=== PATIENT | female | born 1965 | race Caucasian/White ===

== ENCOUNTER 2017-08-07 12:41 | Inpatient (IN) | payer MEDICAID ==
[~2017-08-07] VITALS: Ht 162.6 cm; Wt 94.8 kg
[2017-08-07 12:55] VITALS: BP 156/98
[2017-08-07] MEDS ORDERED: NACL 0.9% 1,000 ML IV ONE ×2 (13:10→14:30)
[2017-08-07] MEDS ORDERED: INSULIN REGULAR, HUMAN 100 UNIT/ML VIAL SUBQ ONE (13:10)
--- NOTE | 2017-08-07 13:15 | NUR ---
52f bib self with c/o dizziness, polyuria, and increased thrist x 2 weeks, progressively getting worse. Pt sts no hx of diabetes.Pt denies any pain or n/v. Pt is aox4 with steady gait. Skin warm/dry/appriopriate for ethnicity. RR are even and unlabored. No acute distress at this time. ER md aware of pt status. Will continue to monitor. VSS. NAD. All needs met at this time. Will continue to monitor.
[2017-08-07 13:37] LABS: BASOPHILS # (AUTO) 0.3 K/uL (0.00-0.22); BASOPHILS % (AUTO) 3.8 % (0.0-2.0); EOSINOPHILS # (AUTO) 0.3 K/uL (0-0.4); EOSINOPHILS % (AUTO) 3.7 % (0.0-4.0); HEMATOCRIT 40.7 % (36-48); HEMOGLOBIN 13.7 g/dL (12.0-16.0); LYMPHOCYTES # (AUTO) 1.8 K/uL (2.5-16.5); LYMPHOCYTES % (AUTO) 24.1 % (20.5-51.1); MEAN CORPUSCULAR HEMOGLOBIN 29 pg (27-31); MEAN CORPUSCULAR HGB CONC 34 g/dL (33-37); MEAN CORPUSCULAR VOLUME 85 fL (80-94); MONOCYTES # (AUTO) 0.4 K/uL (0.8-1.0); MONOCYTES % (AUTO) 5.8 % (1.7-9.3); NEUTROPHILS # (AUTO) 4.5 K/uL (1.8-7.7); NEUTROPHILS % (AUTO) 62.6 % (42.2-75.2); PLATELET COUNT (AUTO) 222 K/uL (140-450); RED BLOOD CELL COUNT(AUTO) 4.78 MIL/uL (4.20-5.40); RED CELL DISTRIBUTION WIDTH 12.8 % (11.6-13.7); WHITE BLOOD COUNT (AUTO) 7.3 K/uL (4.8-10.8)
[2017-08-07 13:48] LABS: APPEARANCE,URINE CLEAR (CLEAR); BILIRUBIN,URINE NEGATIVE (NEGATIVE); BLOOD, URINE 2+ (NEGATIVE); COLOR,URINE YELLOW (YELLOW); LEUKOCYTE ESTERASE ,URINE NEGATIVE (NEGATIVE); NITRITE, URINE NEGATIVE (NEGATIVE); PH,URINE 5.5 (5.0-9.0); UGLUCOSE 3+ (NEGATIVE)
[2017-08-07 14:01] LABS: ALBUMIN 3.6 g/dL (3.4-5.0); ANION GAP 12.8 (8-16); ASPARTATE AMINOTRANSFERASE 24 U/L (15-37); CARBON DIOXIDE 26.7 mmol/L (21-32); CHLORIDE 93 mmol/L (98-107); CREATININE 0.9 mg/dL (0.6-1.3); GFR ARICAN-AMERICAN 85 mL/min (>90); POTASSIUM 3.5 mmol/L (3.5-5.1); SODIUM SERUM 129 mmol/L (136-145); TOTAL BILIRUBIN 0.4 mg/dL (0.0-1.0); UREA NITROGEN, BLOOD 14 mg/dL (7-18)
[2017-08-07 14:05] LABS: FREE T4 (FREE THYROXINE) 1.14 ng/dL (0.76-1.46); THYROID STIMULATING HORMONE 2.24 uIU/mL (0.34-3.74)
[2017-08-07 14:06] LABS: RBC,URINE 3-10 (FEW) /HPF (0-5)
[2017-08-07 14:07] LABS: WBC,URINE 0-5 (RARE) /HPF (0-5)
[2017-08-07 14:11] LABS: GLUCOSE 453 mg/dL (74-106)
--- NOTE | 2017-08-07 14:13 | NUR ---
received critical report BS 453, md aware.
[2017-08-07 14:17] LABS: ACETONE, SERUM NEGATIVE (NEGATIVE)
[2017-08-07] MEDS ORDERED: INSULIN REGULAR, HUMAN 100 UNIT in NACL 0.9% 100 ML IV ONE ×2 (14:25)
[2017-08-07] MEDS ORDERED: HYDROcodone/APAP 7.5/325 MG 1 TAB PO PRN (14:40)
[2017-08-07] MEDS ORDERED: DOCUSATE SODIUM 100 MG GELCAP PO PRN (14:40)
[2017-08-07] MEDS ORDERED: MORPHINE SULFATE 2 MG/ML SYR IVP PRN (14:40)
[2017-08-07] MEDS ORDERED: NACL 0.9% 1,000 ML IV SCH (14:40)
[2017-08-07] MEDS ORDERED: DEXTROSE 50% 50 ML SYR IVP PRN (14:40)
--- NOTE | 2017-08-07 14:45 | NUR ---
patient with no complaitns. pt laying supine in gurney. no acute distress. will continue to monitor.
--- NOTE | 2017-08-07 15:12 | NUR ---
[facility] CALLED BACK TO PROVIDE ADMITTING BED.
[2017-08-07] MEDS ORDERED: ORE25 PO (15:28)
[2017-08-07] MEDS ORDERED: LISI-420 PO (15:28)
[2017-08-07] MEDS ORDERED: HYDR-9 PO (15:33)
--- NOTE | 2017-08-07 15:45 | NUR ---
Patient will be admitted to care of [facility]. Admited to Tele. Will go to room 119b. Belongings list completed. Bedside report to Jovan BARRIENTOS.
[2017-08-07 16:00] VITALS: BP 121/71
--- NOTE | 2017-08-07 16:00 | NUR ---
PATIENT BROUGHT TO THE UNIT VIA GURNEY FROM ER. RECEIVED BEDSIDE REPORT FROM ILIANA LOPEZ. PATIENT IS AAOX4, NO SIGNS AN SYMPTOMS OF ACUTE DISTRESS NOTED AT THIS TIME. HAS IV TO THE RIGHT AC 20G, SALINE LOCK AT THIS TIME. ORIENTED PATIENT TO THE ROOM, EXPLAINED THE CALL LIGHT TO HER. SHE VERBALIZED UNDERSTANDING. BED IS IN LOWEST POSITION, SIDERAILS UP X2, CALL LIGHT WITHIN REACH. WILL CONTINUE TO MONITOR.
[2017-08-07 16:15] LABS: PROTHROMBIN TIME 10.4 secs (10.8-13.4)
[2017-08-07 16:21] LABS: CHOL/HDL RATIO 5.8 (1-4.5); FREE T4 (FREE THYROXINE) 1.14 ng/dL (0.76-1.46); MAGNESIUM 1.4 mg/dL (1.8-2.4); PHOSPHORUS 2.6 mg/dL (2.5-4.9)
[2017-08-07] MEDS ORDERED: HYDROCHLOROTHIAZIDE 25 MG TAB PO SCH (16:30)
[2017-08-07] MEDS ORDERED: LISINOPRIL 20 MG TAB PO SCH (16:30)
[2017-08-07] MEDS: BLOOD GLUCOSE MONITORING 1 DEV DEV FS SCH ×2 (17:10→20:35)
[2017-08-07 17:19] LABS: ANION GAP 10.9 (8-16); CARBON DIOXIDE 27.6 mmol/L (21-32); CREATININE 0.7 mg/dL (0.6-1.3); POTASSIUM 3.5 mmol/L (3.5-5.1)
--- NOTE | 2017-08-07 19:20 | NUR ---
ENDORSED PATIENT TO SCHOOL BUS ATTENDANT NURSE FOR CONTINUITY OF CARE. PATIENT IN STABLE CONDITION.
--- NOTE | 2017-08-07 19:21 | NUR ---
RECEIVED REPORT FROM DAY NURSE CANDIE BARRIENTOS, PT IN STABLE CONDITION. NO S/S OF DISTRESS NOTED. PT IS AAOX4, ON ROOM AIR. IV TO R AC 20G PATENT AND INTACT, INFUSING WELL. SKIN INTACT. RR EVEN/UNLABORED. BOWEL SOUNDS PRESENT. SKIN IS WARM AND DRY TO TOUCH, INITIAL ASSESSMENT COMPLETED. PLAN OF CARE DISCUSSED WITH PT AND FAMILY AT THE BEDSIDE, ALL SAFETY PRECAUTIONS MET, CALL LIGHT WITHIN REACH, WILL CONTINUE TO MONITOR
[2017-08-07 20:00] VITALS: BP 126/68
[2017-08-07] MEDS ORDERED: ZOLPIDEM 5 MG TAB PO PRN (21:00)
[2017-08-07] MEDS: INSULIN LISPRO SLIDING SCALE 100 UNITS/ML VIAL SUBQ PRN (21:36)
[2017-08-07] MEDS: ACETAMINOPHEN 325 MG TAB PO PRN (22:12)
--- NOTE | 2017-08-07 22:30 | NUR ---
COLLECTED URINE FROM PT
[2017-08-08] VITALS (7 sets, daily range): BP systolic 121–137; BP diastolic 63–79
[2017-08-08 01:02] LABS: BARBITURATE, URINE NEG. ng/ml (NEG <=200); BENZODIAZEPINE, URINE NEG. ng/mL (NEG <=200); CANNABINOID, URINE NEG. ng/mL (NEG <=50); COCAINE, URINE NEG. ng/mL (NEG <=300); OPIATE, URINE NEG. ng/mL (NEG <=2000); PHENCYCLIDINE SCREEN,URINE NEG. ng/mL (NEG <=25)
--- NOTE | 2017-08-08 03:40 | NUR ---
BRAIN FROM RAD CALLED, STATED SHE CANNOT DO CT BECAUSE THERE ARE NO RESULTS, WILL NOTIFY DR. ZUNIGA
--- NOTE | 2017-08-08 03:43 | NUR ---
DR. ZUNIGA MADE AWARE TO ORDER TEST.
--- NOTE | 2017-08-08 04:15 | NUR ---
NOTIFIED BRAIN OF NEGATIVE RESULT, WILL COME TO THERAPIST OCCUPATIONAL PT
--- NOTE | 2017-08-08 04:45 | NUR ---
PT TAKEN TO RAD FOR CT IN STABLE CONDITION
--- NOTE | 2017-08-08 05:00 | NUR ---
PT BACK ON UNIT. PT TOLERATED CT WELL, IN STABLE CONDITION
[2017-08-08] MEDS: ACETAMINOPHEN 325 MG TAB PO PRN ×2 (05:31→12:34)
[2017-08-08] MEDS: INSULIN LISPRO SLIDING SCALE 100 UNITS/ML VIAL SUBQ PRN ×4 (05:51→20:55)
[2017-08-08 06:24] LABS: T4 (THYROXINE) 7.7 ug/dL (4.5-12.0)
[2017-08-08 06:38] LABS: BASOPHILS # (AUTO) 0.3 K/uL (0.00-0.22); BASOPHILS % (AUTO) 4.4 % (0.0-2.0); EOSINOPHILS # (AUTO) 0.3 K/uL (0-0.4); EOSINOPHILS % (AUTO) 4.7 % (0.0-4.0); HEMOGLOBIN 12.9 g/dL (12.0-16.0); LYMPHOCYTES # (AUTO) 2.2 K/uL (2.5-16.5); LYMPHOCYTES % (AUTO) 34.6 % (20.5-51.1); MEAN CORPUSCULAR HEMOGLOBIN 29 pg (27-31); MEAN CORPUSCULAR HGB CONC 34 g/dL (33-37); MEAN CORPUSCULAR VOLUME 85 fL (80-94); MONOCYTES # (AUTO) 0.4 K/uL (0.8-1.0); MONOCYTES % (AUTO) 5.8 % (1.7-9.3); NEUTROPHILS # (AUTO) 3.2 K/uL (1.8-7.7); NEUTROPHILS % (AUTO) 50.5 % (42.2-75.2); PLATELET COUNT (AUTO) 205 K/uL (140-450); RED BLOOD CELL COUNT(AUTO) 4.45 MIL/uL (4.20-5.40); RED CELL DISTRIBUTION WIDTH 12.7 % (11.6-13.7); WHITE BLOOD COUNT (AUTO) 6.4 K/uL (4.8-10.8)
[2017-08-08] MEDS: BLOOD GLUCOSE MONITORING 1 DEV DEV FS SCH ×4 (06:49→20:52)
[2017-08-08 07:01] LABS: ANION GAP 11.9 (8-16); CARBON DIOXIDE 26.4 mmol/L (21-32); CREATININE 0.7 mg/dL (0.6-1.3); POTASSIUM 3.3 mmol/L (3.5-5.1)
--- NOTE | 2017-08-08 07:33 | NUR ---
REPORT GIVEN TO DAY NURSE FOR CONTINUITY OF CARE, PT IN STABLE CONDITION. NO S/S OF DISTRESS NOTED
[2017-08-08 07:34] LABS: MAGNESIUM 1.4 mg/dL (1.8-2.4)
[2017-08-08] MEDS: metFORMIN 500 MG TAB PO SCH ×2 (08:47→17:34)
[2017-08-08] MEDS ORDERED: MAG SULF 2000 MG/WATER PREMIX 100 ML IV ONE (10:00)
[2017-08-08] MEDS: HYDROCHLOROTHIAZIDE 25 MG TAB PO SCH (10:48)
[2017-08-08] MEDS: LISINOPRIL 20 MG TAB PO SCH (10:49)
[2017-08-08] MEDS ORDERED: MAG SULF 2000 MG/WATER PREMIX 50 ML IV ONE (13:20)
[2017-08-08] MEDS ORDERED: POTASSIUM CHLORIDE 10 MEQ TABER PO SCH (13:39)
--- NOTE | 2017-08-08 15:06 | NUR ---
Nurse's Note: Resident Dr Hernandez asked if second Magnesium bolus was needed, first one order by Dr Carson, dose was hanged at 1000, Dr Hernandez will cancel the second Magnesium dose. Patient also received 40 meQ KCL. IV was hep lock.
--- NOTE | 2017-08-08 15:30 | NUR ---
PATIENT HAS BEEN SCREENED AND CATEGORIZED HIGH NUTRITION RISK. PATIENT WILL BE SEEN WITHIN 1-2 DAYS OF ADMISSION. 08/08/17 - 08/09/[address]
--- NOTE | 2017-08-08 16:49 | NUR ---
SPOKE WITH KEL, WAREHOUSE ATTENDANT THIS AM. SHE SAID NO CM ASSIGNED YET, BUT FAX REVIEW TO [facility], . PENDING REFERENCE #[id number].
--- NOTE | 2017-08-08 19:50 | NUR ---
RECEIVED PT IN STABLE CONDITION FROM AM NURSE. AWAKE,ALERT AND ORIENTED X4. AMBULATORY. WITH NO C/O ANY PAIN AT THIS TIME. ON TELE MONITOR. HAS HL ON THE RT AC #20. CLEAR AND PATENT. PLAN OF CARE DISCUSSED AND VERBALIZED UNDERSTANDING. BED ON LOW POSITION ,CALL LIGHT PLACED WITHIN EASY REACH. WILL CONTINUE TO MONITOR.
[2017-08-08] MEDS: ATORVASTATIN 20 MG TAB PO SCH (20:52)
--- NOTE | 2017-08-08 20:55 | NUR ---
BLOOD SUGAR WAS CHECKED RESULT 274. INSULIN COVERAGE GIVEN SUB Q , AND ALSO THE LANTUS Q HS . PROVIDED WITH SOME SNACK. WILL CONTINUE TO MONITOR.
[2017-08-08] MEDS ORDERED: INSULIN LANTUS 100 UNITS/ML 10 ML VIAL SUBQ SCH (21:00)
--- NOTE | 2017-08-08 22:00 | NUR ---
PT ASLEEP. NO S/S FO ANY DISCOMFORT NOR PAIN NOTED.
--- NOTE | 2017-08-08 23:30 | NUR ---
PT AWAKE. VITAL SIGNS TAKEN. STABLE. NO C/O ANY DISCOMFORT NOR PAIN NOTED. WILL CONTINUE TO MONITOR.
--- NOTE | 2017-08-09 02:20 | NUR ---
MADE ROUNDS. PT ASLEEP. NO S/S OF ANY DISCOMFORT NOTED.
[2017-08-09 04:25] VITALS: BP 123/67
[2017-08-09] MEDS: BLOOD GLUCOSE MONITORING 1 DEV DEV FS SCH ×4 (06:18→21:23)
[2017-08-09] MEDS: INSULIN LISPRO SLIDING SCALE 100 UNITS/ML VIAL SUBQ PRN ×4 (06:19→21:27)
--- NOTE | 2017-08-09 06:19 | NUR ---
BLOOD SUGAR WAS CHECKED ELZBIETA AVALOS RESULT 317. INSULIN COVERAGE HUMALOG 8 UNITS SUBQ GIVEN LT ABDOMEN.
[2017-08-09 06:35] LABS: HEMATOCRIT 38.9 % (36-48); HEMOGLOBIN 13.1 g/dL (12.0-16.0); MEAN CORPUSCULAR HEMOGLOBIN 29 pg (27-31); MEAN CORPUSCULAR HGB CONC 34 g/dL (33-37); MEAN CORPUSCULAR VOLUME 86 fL (80-94); PLATELET COUNT (AUTO) 205 K/uL (140-450); RED BLOOD CELL COUNT(AUTO) 4.55 MIL/uL (4.20-5.40); RED CELL DISTRIBUTION WIDTH 12.8 % (11.6-13.7); WHITE BLOOD COUNT (AUTO) 6.3 K/uL (4.8-10.8)
--- NOTE | 2017-08-09 07:20 | NUR ---
ENDORSED PT IN STABLE CONDITION TO AM NURSE.
--- NOTE | 2017-08-09 07:21 | NUR ---
RECEIVED REPORT FROM YOUTH MINISTER NURSE CROW AT BEDSIDE FOR CONTINUITY OF CARE. PT IS AWAKE AND ORIENTED X4. INTRODUCED SELF AND UPDATED BOARD. PT SL TO R AC 20G. SITE INTACT. SKIN WARM AND DRY. ON RA WITH O2 SAT 96%. NO SOB. PT DENIES PAIN. NO SIGNS OF DISTRESS. RESTING COMFORTABLY IN BED. BED IN LOW POSITION, WHEELS LOCKED, CALL LIGHT WITHIN REACH. WILL CONTINUE TO MONITOR.
[2017-08-09 07:48] LABS: EOSINOPHILS % (MANUAL) 4 % (0-4); LYMPHOCYTES % (MANUAL) 34 % (20-46); MONOCYTES % (MANUAL) 6 % (5-12)
[2017-08-09 08:00] VITALS: BP 136/71
[2017-08-09] MEDS: LISINOPRIL 20 MG TAB PO SCH (08:34)
[2017-08-09] MEDS: metFORMIN 500 MG TAB PO SCH ×2 (08:34→17:06)
[2017-08-09] MEDS: HYDROCHLOROTHIAZIDE 25 MG TAB PO SCH (08:34)
[2017-08-09] MEDS: ECOTRIN 81 MG TABEC PO SCH (08:34)
[2017-08-09 09:37] LABS: ANION GAP 12.7 (8-16); CARBON DIOXIDE 25.1 mmol/L (21-32); CREATININE 0.8 mg/dL (0.6-1.3); POTASSIUM 3.8 mmol/L (3.5-5.1)
[2017-08-09 09:39] LABS: MAGNESIUM 1.5 mg/dL (1.8-2.4); PHOSPHORUS 3.9 mg/dL (2.5-4.9)
[2017-08-09] MEDS: ACETAMINOPHEN 325 MG TAB PO PRN (14:20)
--- NOTE | 2017-08-09 14:29 | NUR ---
08/09/2017 RD INITIAL ASSESSMENT COMPLETED PLEASE REFER TO NUTRITION ASSESSMENT UNDER CARE ACTIVITY FOR ESTIMATED NUTRITIONAL NEEDS. CONTINUE 60 GMS CCHO DIET TOLERATED PROVIDE DM NUTRITION EDUCATION. RD TO FOLLOW-UP IN 5-7 DAYS PATIENT IS LOW RISK. CHADD [address] RD
--- NOTE | 2017-08-09 14:40 | NUR ---
CM NOTE CONCURRENT REVIEW FAXED TO [facility] / FAX# [phone]
--- NOTE | 2017-08-09 14:50 | NUR ---
DR. ALEX CAME TO EXAMINE PT. PT STATED SHE HAD WHITE VAGINAL DISCHARGE BEFORE SHE STARTED HER PERIOD 2 WEEKS AGO. RECEIVED ORDERS. CALLED LAB ABOUT URINE CULTURE. STILL PENDING RESULTS FROM [facility].
[2017-08-09] MEDS ORDERED: FLUCONAZOLE 100 MG TAB PO SCH (14:53)
[2017-08-09 16:00] VITALS: BP 118/76
--- NOTE | 2017-08-09 17:24 | NUR ---
PT'S BS WAS 225. ADMINISTERED 4 UNITS INSULIN SUBQ. PT TOLERATED WELL. EDUCATED PT ON EXERCISE, FLUID INTAKE AND METFORMIN FOR GLYCEMIC CONTROL. PT VERBALIZED UNDERSTANDING. STATED SHE WALKED TODAY AROUND THE UNIT AND WILL DO MORE WALKING AND DRINKING WATER. NO SIGNS OF DISTRESS. CALL LIGHT WITHIN REACH. WILL CONTINUE TO MONITOR.
--- NOTE | 2017-08-09 19:19 | NUR ---
ENDORSED PT TO MEDICAL RECEPTIONIST BILLER NURSE CROW AT BEDSIDE FOR CONTINUITY OF CARE. PT IN STABLE CONDITION.
--- NOTE | 2017-08-09 19:20 | NUR ---
RECEIVED PT IN STABLE CONDITION FROM AM NURSE. AWAKE,ALERT AND ORIENTED XE. MED SURG PT. AMBULATORY. NO C/O ANY DISCOMFORT NOR PAIN NOTED. WITH FAMILY AT BEDSIDE. HAS HL ON THE RT AC#20. CLEAR AND PATENT. PLAN OF CARE DISCUSSED AND VERBALIZED UNDERSTANDING. BED ON LOW POSITION. CALL LIGHT PLACED WITHIN EASY REACH. WILL CONTINUE TO MONITOR.
[2017-08-09] MEDS ORDERED: MAG SULF 2000 MG/WATER PREMIX 50 ML IV SCH (20:30)
[2017-08-09] MEDS: ATORVASTATIN 20 MG TAB PO SCH (21:21)
[2017-08-09] MEDS: INSULIN LANTUS 100 UNITS/ML 10 ML VIAL SUBQ SCH (21:27)
--- NOTE | 2017-08-09 21:27 | NUR ---
BLOOD SUGAR WAS CHECKED RESULT 227. INSULIN COVERAGE OF HUMALOG 4 UNITS GIVEN SUBQ. LANTUS ROUTINE ALS O GIVEN. SNACK PROVIDED. WILL CONTINUE TO MONITOR.
--- NOTE | 2017-08-09 21:30 | NUR ---
MAGNESIUM LEVEL 1.5 DR. ZUNIGA , MADE AWARE. WITH ORDER.
--- NOTE | 2017-08-09 23:00 | NUR ---
MADE ROUNDS. PT ASLEEP. NO S/S OF ANY DISCOMFORT NOR PAIN NOTED.
[2017-08-10 00:10] VITALS: BP 141/75
--- NOTE | 2017-08-10 02:00 | NUR ---
MADE ROUNDS. ASLEEP. NO S/S OF ANY DISCOMFORT NOTED.
[2017-08-10] MEDS: BLOOD GLUCOSE MONITORING 1 DEV DEV FS SCH ×4 (06:01→21:00)
[2017-08-10] MEDS: INSULIN LISPRO SLIDING SCALE 100 UNITS/ML VIAL SUBQ PRN ×4 (06:03→22:20)
--- NOTE | 2017-08-10 06:03 | NUR ---
BLOOD SUGAR THIS AM 296. INSULIN HUMALOG 6 UNITS SUB Q GIVEN COVERAGE.
[2017-08-10 06:49] LABS: BASOPHILS # (AUTO) 0.3 K/uL (0.00-0.22); BASOPHILS % (AUTO) 4.2 % (0.0-2.0); EOSINOPHILS # (AUTO) 0.3 K/uL (0-0.4); EOSINOPHILS % (AUTO) 3.7 % (0.0-4.0); HEMATOCRIT 39.4 % (36-48); HEMOGLOBIN 13.3 g/dL (12.0-16.0); LYMPHOCYTES # (AUTO) 1.8 K/uL (2.5-16.5); LYMPHOCYTES % (AUTO) 22.6 % (20.5-51.1); MEAN CORPUSCULAR HEMOGLOBIN 29 pg (27-31); MEAN CORPUSCULAR HGB CONC 34 g/dL (33-37); MEAN CORPUSCULAR VOLUME 85 fL (80-94); MONOCYTES # (AUTO) 0.5 K/uL (0.8-1.0); MONOCYTES % (AUTO) 5.8 % (1.7-9.3); NEUTROPHILS % (AUTO) 63.7 % (42.2-75.2); PLATELET COUNT (AUTO) 218 K/uL (140-450); RED BLOOD CELL COUNT(AUTO) 4.62 MIL/uL (4.20-5.40); RED CELL DISTRIBUTION WIDTH 12.5 % (11.6-13.7); WHITE BLOOD COUNT (AUTO) 7.9 K/uL (4.8-10.8)
--- NOTE | 2017-08-10 07:15 | NUR ---
RECEIVED PT REPORT AT BEDSIDE. PT AWAKE AO X4. NO S/S OF DISTRESS. PT ON RA. NO SOB. NO COMPLAINTS OF PAIN AT THIS TIME. IV LINE RAC 20G HEP-LOCK. BED LOWERED WITH CALL LIGHT WITHIN REACH. WILL CONTINUE TO MONITOR.
--- NOTE | 2017-08-10 07:18 | NUR ---
ENDORSED PT IN STABLE CONDITION TO MA NURSE.
[2017-08-10 07:20] LABS: MAGNESIUM 1.6 mg/dL (1.8-2.4); PHOSPHORUS 4.5 mg/dL (2.5-4.9)
[2017-08-10 08:00] VITALS: BP 147/81
[2017-08-10] MEDS: ECOTRIN 81 MG TABEC PO SCH (08:18)
[2017-08-10] MEDS: LISINOPRIL 20 MG TAB PO SCH (08:19)
[2017-08-10] MEDS: HYDROCHLOROTHIAZIDE 25 MG TAB PO SCH (08:19)
[2017-08-10] MEDS: metFORMIN 500 MG TAB PO SCH ×2 (08:19→16:45)
[2017-08-10] MEDS: FLUCONAZOLE 100 MG TAB PO SCH (08:20)
[2017-08-10 09:05] LABS: ANION GAP 13.9 (8-16); CARBON DIOXIDE 25.6 mmol/L (21-32); CREATININE 0.9 mg/dL (0.6-1.3); POTASSIUM 3.5 mmol/L (3.5-5.1)
[2017-08-10] MEDS ORDERED: INSULIN LANTUS 100 UNITS/ML 10 ML VIAL SUBQ SCH (10:12)
--- NOTE | 2017-08-10 11:00 | NUR ---
PER PATIENT SHE WAS GIVEN EDUCATION ABOUT DIABETES YESTERDAY. EDUCATIONAL MATERIALS AT BEDSIDE.
--- NOTE | 2017-08-10 12:34 | NUR ---
FAXED CONCURRENT REVIEW TO [facility] [phone]
--- NOTE | 2017-08-10 14:30 | NUR ---
PATIENT AMBULATED AROUND THE UNIT. NO SIGNS OF DISTRESS.
[2017-08-10 16:05] VITALS: BP_SYST 131; BP_SYST 155; BP_DIAS 76; BP_DIAS 96
--- NOTE | 2017-08-10 17:20 | NUR ---
PATIENT AMBULATED AROUND THE UNIT. NO SIGNS OF DISTRESS.
--- NOTE | 2017-08-10 18:17 | NUR ---
PATIENT EDUCATED ON HOW TO ADMINISTER INSULIN BY DEMONSTRATION. PATIENT VERBALIZED UNDERSTANDING.
--- NOTE | 2017-08-10 19:20 | NUR ---
PT REPORT GIVEN AT BEDSIDE TO NIGHTSHIFT NURSE. PT ENDORSED IN STABLE CONDITION.
--- NOTE | 2017-08-10 19:23 | NUR ---
RECEIVED PT FROM DAY SHIFT NURSE KANDACE-RN. PT AWAKE AOX4 WITH FAMILY AT BEDSIDE. NO S/S OF DISTRESS. PT ON ROOM AIR. NO S/S OF RESPIRATORY DISTRESS OR DISCOMFORT NOTED AT THIS TIME. NO COMPLAINTS OF PAIN AT THIS TIME. IV LINE RAC 20G HEP-LOCK. BED LOWERED WITH CALL LIGHT WITHIN REACH. WILL CONTINUE TO MONITOR.
[2017-08-10] MEDS ORDERED: MICONAZOLE VAG 2% 45 GM TUBE VG SCH (21:00)
[2017-08-10] MEDS: ATORVASTATIN 20 MG TAB PO SCH (22:04)
[2017-08-10] MEDS: INSULIN LANTUS 100 UNITS/ML 10 ML VIAL SUBQ SCH (22:10)
--- NOTE | 2017-08-10 22:15 | NUR ---
PT TOLERATED MEDICATIONS WELL. GAVE EDUCATION ON HOW TO ADMINISTER MONISTAT SINCE SHE STATED THAT SHE HAD NEVER USED THIS MEDICATION IN THE PAST. ALSO GAVE EDUCATION ON INSULIN ADMINISTRATION AND THE DIFFERENCES BETWEEN LONG ACTING AND SHORT ACTING INSULIN.
[2017-08-11] VITALS: BP 139/72
--- NOTE | 2017-08-11 00:10 | NUR ---
PT SLEEPING AT THIS TIME. NO S/S OF RESPIRATORY DISTRESS OR DISCOMFORT NOTED AT THIS TIME. BED IN LOWEST POSITION. CALL LIGHT WITHIN REACH. WILL CONTINUE TO MONITOR.
--- NOTE | 2017-08-11 02:15 | NUR ---
PT RESTING IN BED AT THIS TIME. NO S/S OF RESPIRATORY DISTRESS OR DISCOMFORT NOTED AT THIS TIME. CALL LIGHT WITHIN REACH. BED IN LOWEST POSITION. WILL CONTINUE TO MONITOR.
[2017-08-11] MEDS: ACETAMINOPHEN 325 MG TAB PO PRN (03:48)
--- NOTE | 2017-08-11 03:50 | NUR ---
PT COMPLAINED OF LEFT LOWER BREAST PAIN. SHE STATED THAT LAST NIGHT SHE HAD THE SAME PAIN BUT WAS MORE INTENSE. SHE REQUESTED TYLENOL. PAIN MEDICATION WAS ADMINISTERED ORDERED BY MD REED. PT ALSO STATED THAT SHE HAS BEEN UNABLE TO FALL ASLEEP. AMBIEN WAS OFFERED HOWEVER SHE DECLINED STATING, "ONCE THE PAIN GOES AWAY I WILL BE ABLE TO SLEEP. IF I STILL CANNOT SLEEP I WILL CALL YOU SO YOU CAN GIVE ME THE SLEEP MEDICATION." PT RESTING IN BED. NO S/S OF RESPIRATORY DISTRESS. CALL LIGHT WITHIN REACH. WILL CONTINUE TO MONITOR.
[2017-08-11] MEDS: BLOOD GLUCOSE MONITORING 1 DEV DEV FS SCH (06:46)
[2017-08-11] MEDS: INSULIN LISPRO SLIDING SCALE 100 UNITS/ML VIAL SUBQ PRN (06:47)
--- NOTE | 2017-08-11 07:47 | NUR ---
ENDORSED PT TO DAY SHIFT NURSE. PT IN STABLE AT THIS TIME.
--- NOTE | 2017-08-11 07:48 | NUR ---
RECEIVED REPORT FROM HOUSE PRINCIPAL NURSE AT BEDSIDE FOR CONTINUITY OF CARE. PT AOX4, GEORGIAN SPEAKING. PT ON ROOM AIR. NO S/S OF RESPIRATORY DISTRESS OR DISCOMFORT NOTED AT THIS TIME. NO COMPLAINTS OF PAIN AT THIS TIME. IV TO R AC 20G SALINE LOCKED, PATENT, ASYMPTOMATIC, AND INTACT. SAFETY PRECAUTION IN PLACE, BED IN LOWEST POSITION, CALL LIGHT WITHIN REACH. WILL CONTINUE TO MONITOR PATIENT.
[2017-08-11 08:00] VITALS: BP 139/81
[2017-08-11] MEDS: LISINOPRIL 20 MG TAB PO SCH (08:18)
[2017-08-11] MEDS: FLUCONAZOLE 100 MG TAB PO SCH (08:19)
[2017-08-11] MEDS: metFORMIN 500 MG TAB PO SCH (08:19)
[2017-08-11] MEDS: HYDROCHLOROTHIAZIDE 25 MG TAB PO SCH (08:19)
[2017-08-11] MEDS: ECOTRIN 81 MG TABEC PO SCH (08:20)
--- NOTE | 2017-08-11 08:20 | NUR ---
BLOOD SUGAR 267. VITAL SIGNS WITHIN NORMAL LIMITS. ORDERED MEDICATIONS ADMINISTERED. PATIENT TOLERATED THEM WELL. NO S/S OF RESPIRATORY DISTRESS OR DISCOMFORT NOTED AT THIS TIME. NO COMPLAINTS OF PAIN AT THIS TIME. SAFETY PRECAUTION IN PLACE, BED IN LOWEST POSITION, CALL LIGHT WITHIN REACH. WILL CONTINUE TO MONITOR PATIENT.
[2017-08-11] MEDS ORDERED: INSULIN LANTUS 100 UNITS/ML 10 ML VIAL SUBQ SCH (09:00)
[2017-08-11] MEDS ORDERED: BLOO1EAC40 MC (09:47)
[2017-08-11] MEDS ORDERED: METF500T PO (09:47)
[2017-08-11] MEDS ORDERED: [UNRECOGNIZED DRUG - CODE] MC (09:47)
[2017-08-11] MEDS ORDERED: INSU100S22 SUBQ (09:47)
[2017-08-11] MEDS ORDERED: BLOO1STR56 MC (09:47)
[2017-08-11] MEDS ORDERED: LANC-947 MC (09:47)
[2017-08-11] MEDS ORDERED: MAGNESIUM OXIDE 400 MG TAB PO SCH (10:30)
--- NOTE | 2017-08-11 10:55 | NUR ---
PATIENT DISCHARGE INSTRUCTION AND EDUCATION GIVEN. FAMILY AT BEDSIDE. PATIENT AND FAMILY MEMBERS VERBALIZED UNDERSTANDING. IV REMOVED, IV CATHETER INTACT, MINIMAL BLEEDING NOTED. ID BANDS CUT. PATIENT WILL NOW CHANGE INTO HER CLOTHING AND PREPARE TO BE DISCHARGED.
--- NOTE | 2017-08-11 11:40 | NUR ---
PATIENT AMBULATED OFF THE FLOOR WITH FAMILY MEMBERS BY HER SIDE WITH RN STUDENT. PATIENT TOOK ALL HER BELONGINGS WITH HER. PATIENT IN STABLE CONDITION.
== END 2017-08-11 11:40 | disposition home or self-care (01) | DRG 420 ==
LOC: MED 12:41 → MTU 14:40
PROVIDERS: ADMIT Family Medicine Sports Medicine; ATTEND Family Medicine Sports Medicine
DX: E11.00 Type 2 diabetes mellitus with hyperosmolarity without nonketotic hyperglycemic-hyperosmolar coma (NKHHC) (principal); G93.41 Metabolic encephalopathy; D68.59 Other primary thrombophilia; E11.69 Type 2 diabetes mellitus with other specified complication; E87.8 Other disorders of electrolyte and fluid balance, not elsewhere classified; E83.42 Hypomagnesemia; E11.51 Type 2 diabetes mellitus with diabetic peripheral angiopathy without gangrene; B37.3 Candidiasis of vulva and vagina; E87.1 Hypo-osmolality and hyponatremia; E87.6 Hypokalemia; I10 Essential (primary) hypertension; Z83.3 Family history of diabetes mellitus
CPT/HCPCS: 36415; 36600; 70450; 71045; 80048; 80053; 80305; 81001; 82009; 82150; 82550; 82803; 82948; 83036; 83605; 83690; 83735; 83880; 84100; 84436; 84439; 84443; 84479; 84703; 85025; 85610; 85730; 87040; 87081; 87086; 93005; 93880; 93925; 93970; 96360; 96361; 99285; J1815; J3475; J7030; Q0092